=== PATIENT | male | born 1950 | race Caucasian/White ===

== ENCOUNTER 2018-07-11 08:38 | Outpatient (CLI) | payer MEDICARE, OTHER ==
[2018-07-11] MEDS ORDERED: Gadobenate Dimeglumine 529 MG/1 ML (20ML VIAL) ONE (08:57)
--- NOTE | 2018-07-11 14:21 | MRI ---
MRI PELVIS WITH AND WITHOUT IV CONTRAST: Date: 07/11/18 HISTORY: Elevated PSA. Biopsy 6 days ago. TECHNIQUE: Multiplanar, multisequence MRI of the pelvis was performed with and without IV contrast using prostat e protocol. Review was also performed on an independent 3D workstation. FINDINGS: Prostate measures 7.5 x 6.0 x 6.0 cm with a volume of 141 mL. There is a focal area of restricted diffusion in the apex of the left peripheral zone measuring 1.0 c m. There is suggestion of involvement of the neurovascular bundle. This lesion demonstrates a focal p ostcontrast enhancement. No focal lentiform area of abnormal T2 decreased signal is seen in the transitional zone. The seminal vesicles demonstrate hemorrhagic products on the left. No pelvic lymphadenopathy seen. Pelvic side wall is normal. No abnormal areas of signal replacement a re seen on the T1-weighted sequences to suggest osseous metastatic disease. IMPRESSION: PIRADS Category 4 - High likelihood of clinically significant cancer. This exam was interpreted in consultation with Dr Chente Chopra who concurs. POS: PAM
== END 2018-07-11 08:39 | disposition home or self-care (01) ==
LOC: TBSIIMAG 08:38
PROVIDERS: ATTEND Urology
DX: N40.3 Nodular prostate with lower urinary tract symptoms (principal); R97.20 Elevated prostate specific antigen [PSA]
CPT/HCPCS: 72197; 82565; A9577

== ENCOUNTER 2018-11-14 09:14 | Outpatient (CLI) | payer MEDICARE, OTHER ==
[2018-11-14 11:12] LABS: Mean Corpuscular HGB CONC 35.1 g/dL (32.0-36.0); Mean Corpuscular Hemoglobin 32.4 pg (27.0-31.0); Mean Corpuscular Volume 92.1 fL (78.0-98.0); Mean Platelet Volume 8.1 fL (7.4-10.4); Platelet Count 276 thou/uL (130-400); RBC Distribution Width 11.7 % (11.5-14.5); Red Blood Cell (RBC) Count 5.26 mill/uL (4.70-6.10); White Blood Cell (WBC) Count 6.1 thou/uL (4.8-10.8)
[2018-11-14 11:21] LABS: Bacteria/HPF None Seen HPF (None Seen); Bilirubin Negative (Negative); Blood, Urine Negative (Negative); Clarity Clear (Clear); Glucose, Urine (Dipstick) Normal (Negative); Leukocyte Negative Leu/uL (Negative); Nitrite Negative (Negative); PTT 24.8 SEC (22.9-36.1); Protein, Urine (Dipstick) Negative (Neg-Trace); Prothrombin Time 12.8 SEC (12.0-14.7); RBC/HPF 0-3 HPF (0-3); Squamous Epithelial None Seen HPF (0-3); Urobilinogen Normal mg/dL (Less than 2); WBC/HPF 0-3 HPF (0-3)
[2018-11-14 11:36] LABS: Anion Gap 13 mmol/L (10-20); BUN (Urea Nitrogen) 13 mg/dL (8.4-25.7); Calc. Creatinine Clearance 0 mL/min (70-130); Calcium 9.4 mg/dL (7.8-10.44); Carbon Dioxide 26 mmol/L (23-31); Chloride 102 mmol/L (98-107); Estimated GFR-MDRD Greater than 90; Glucose 80 mg/dL (80-115); Potassium 4.3 mmol/L (3.5-5.1); Sodium 137 mmol/L (136-145)
--- NOTE | 2018-11-15 11:03 | EKG ---
Test Reason : Blood Pressure : / mmHG Vent. Rate : 067 BPM Atrial Rate : 067 BPM P-R Int : 164 ms QRS Dur : 092 ms QT Int : 390 ms P-R-T Axes : 064 049 056 degrees QTc Int : 412 ms Normal sinus rhythm Normal ECG No previous ECGs available Confirmed by JOSE SOTOMAYOR ([id number]) on 11/15/2018 11:03:02 AM Referred By: PAIGE Confirmed By:JOSE SOTOMAYOR
== END 2018-11-14 09:15 | disposition home or self-care (01) ==
LOC: LABBT 09:14
PROVIDERS: ATTEND Urology
DX: Z01.818 Encounter for other preprocedural examination (principal); R97.20 Elevated prostate specific antigen [PSA]
CPT/HCPCS: 80048; 81001; 85027; 85610; 85730; 87086; 93005; 93010

== ENCOUNTER 2018-11-28 05:58 | Day surgery (SDC) | payer MEDICARE, OTHER ==
[2018-11-14 09:32] VITALS: BMI 25.0
[2018-11-28] MEDS ORDERED: cefTRIAXone\\ROCEPHIN 1 GM VIAL ONE (06:30)
[2018-11-28] MEDS ORDERED: Sodium Chloride 0.9% 100 ML ONE (06:30)
[2018-11-28] MEDS ORDERED: Fentanyl 100 MCG/2 ML VIAL ONE (07:21)
--- NOTE | 2018-11-28 12:05 | OP ---
DATE OF PROCEDURE: 11/28/2018 SERVICE: Urology. PREOPERATIVE DIAGNOSIS: Elevated PSA. POSTOPERATIVE DIAGNOSIS: Elevated PSA. PROCEDURE PERFORMED: MRI fusion biopsy. INDICATION FOR PROCEDURE: Mr. Blankenship is a 68-year-old white male, referred by Dr. Haas for concerns regarding elevated PSA. He had an MRI done, which demonstrated a BI-RADS 4 lesion and 114 mL prostate. We discussed MRI fusion biopsy given the large size of his prostate with risks and benefits, and he agreed to proceed forward. DESCRIPTION OF PROCEDURE: After identification of armband and verification of consent, the patient was brought back to the operating room. He underwent total intravenous anesthesia. He was then left in the left lateral decubitus position and prepped in position with the UroNav system. Ultrasound probe was introduced through the anal verge and volume studies performed. The prostate measured 5.7 cm in length, 5.5 cm in width, and 6.1 cm in height with a total volume of approximately 101 mL. Targeted biopsies were taken. After the fusion process was completed from the targeted lesion with a BI-RADS 4 area of concern was noted. A total of 6 biopsies were taken from that location. In addition, a standard twelve core template biopsy was performed in sextants. Upon completion, bleeding was noted to be minimal. The ultrasound probe was removed. The patient was then returned back to normal position, awakened, and taken to Day Stay for recovery. COMPLICATIONS: None. ESTIMATED BLOOD LOSS: Minimal. RETAINED TUBES AND DRAINS: None. SPECIMENS: Prostate biopsies. DISPOSITION: The patient will be discharged home and follow up with me on outpatient basis to discuss biopsy results. Job ID: [id number]
== END 2018-11-28 09:15 | disposition home or self-care (01) ==
LOC: SDC 05:58
PROVIDERS: ATTEND Urology
PROC: 0VB03ZX Excision of Prostate, Percutaneous Approach, Diagnostic (ICD-10-PCS; principal; 2018-11-28)
DX: N41.1 Chronic prostatitis (principal); N42.89 Other specified disorders of prostate; N40.0 Benign prostatic hyperplasia without lower urinary tract symptoms; Z79.82 Long term (current) use of aspirin; Z79.899 Other long term (current) drug therapy
CPT/HCPCS: 88305; J0696; J3010; J3490

== ENCOUNTER 2021-02-09 13:11 | Outpatient (CLI) | payer MEDICARE, OTHER ==
[~2021-02-09 13:11] MED LIST: Magnevist 469MG/ML 20 ML VIAL ONE
== END 2021-02-09 13:12 | disposition home or self-care (01) ==
LOC: TBSIIMAG 13:11
PROVIDERS: ATTEND Urology
DX: N40.2 Nodular prostate without lower urinary tract symptoms (principal)
CPT/HCPCS: 72197; 82565; A9579